=== PATIENT | male | born 1990 | race American Indian/Alaskan Native ===

== ENCOUNTER 2018-11-07 13:14 | Emergency (ER) | payer OTHER ==
[~2018-11-07] VITALS: Ht 180.3 cm; Wt 95.2 kg
[2018-11-07] MEDS ORDERED: DICYCLOMINE HCL20 MG PO (16:41)
[2018-11-07] MEDS ORDERED: ONDANSETRON ODT8 MG PO (16:41)
--- OUTSIDE RECORDS SUMMARY | 2018-11-07 16:54 | XMS ---
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 Care History Medical/Surgical 11/07/2018 [facility] \T\middot;\T\nbsp; PATIENT IS A [employer] MEMBER. \T\middot;\T\nbsp; PLEASE REFER PATIENT TO [facility] FOR NON EMERGENT MEDICAL NEEDS. \T\middot;\ T\nbsp; [facility] CAN SEE PATIENTS SAME DAY FOR APTS IF PATIENT CALLS FIRST THING IN THE MORNING. E.D. VISIT COUNT (12 MO.) [address] [place] [address] TOTAL 1 NOTE: Visits indicate total known visits. ED/UCC VISIT TRACKING (12 MO.) 11/07/2018 13:[address] [facility] [place] TYPE: Emergency COMPLAINT: - FLANK, ABD PAIN INPATIENT VISIT TRACKING (12 MO.) No inpatient visits to display in this time frame [email or web address]
== END 2018-11-07 16:50 | disposition home or self-care (01) ==
LOC: ED 13:14
DX: K80.50 Calculus of bile duct without cholangitis or cholecystitis without obstruction (principal); I10 Essential (primary) hypertension; F41.9 Anxiety disorder, unspecified; F17.200 Nicotine dependence, unspecified, uncomplicated
CPT/HCPCS: 71046; 76705; 80053; 83690; 85025; 96374; 99284-25; 99406; J1885

== ENCOUNTER 2018-11-09 23:31 | Observation (INO) | payer OTHER ==
[~2018-11-09] VITALS: Ht 180.3 cm; Wt 88.7 kg
--- NOTE | ~2018-11-09 | DS ---
[facility] [address] [place], [place] [address] [place] ADMISSION DATE: 11/09/2018 DISCHARGE DATE: 11/11/2018 REASON FOR ADMISSION: This 28-year-old man has had recurrent bouts of right upper abdominal pain. He was seen on Monday last week (today is Monday). He was evaluated in the emergency room by Dr. Valdez showing a gallbladder ultrasound showing "gallbladder polyps." The patient had symptoms suggestive of chronic and recurrent subacute cholecystitis, and he was recommended to be admitted to the hospital for cholecystectomy. He declined due to work issues. He returns on November 10, with complaints of persistent unrelenting pain and he was admitted for further evaluation and care. PHYSICAL EXAMINATION: GENERAL: A healthy male with multiple tattoos. CHEST: Clear. HEART: Regular. ABDOMEN: Flat and soft, but tender in the right subcostal area. LABORATORY STUDIES: Showed a white count of 5.4, hematocrit of 44.8. Chem profile, which was normal showing no sign of hyperbilirubinemia. Lipase normal at 12. HOSPITAL COURSE: He was fluid resuscitated, given intravenous antibiotics, parenteral pain medication, and underwent laparoscopic cholecystectomy on Saturday, November 10, 2018. Cholangiogram was performed as well. The gallbladder was acutely and subacutely inflamed. Cholangiogram was normal. The liver was normal. His postoperative course was rather unremarkable. He was not able to be discharged the night of surgery due to persistent epigastric pain, but this improved and resolved by Sunday, November 11, 2018. Postoperative lab study showed normal liver enzymes. He is discharged home in good condition. DISCHARGE MEDICATIONS: 1. Oxycodone/Tylenol 7.5/325 one p.o. q.6 p.r.n. pain, #10. 2. Ibuprofen 600 mg p.o. q.6 p.r.n. pain, #30. 3. Tylenol plain 325-650 p.o. q.4 hours p.r.n. pain. He will discontinue dicyclomine and Zofran that he was prescribed previously. FOLLOWUP PLANS: He will return to see me in approximately a month. He will call for appointment. He PATIENT NAME: MAL ECHOLS DISCHARGE SUMMARY DATE OF : 86 REPORT #: [id number] PHYSICIAN: HERMINIO HA MD PCP: [facility] REPORT IS CONFIDENTIAL AND NOT TO BE RELEASED WITHOUT AUTHORIZATION [address] [address] [place] wishes to return to work soon. His only restriction will be to lift no more than 20 pounds for the next 2 weeks. A note will be made to that effect. DISCHARGE DIAGNOSIS: Chronic recurrent calculous cholecystitis status post laparoscopic cholecystectomy with intraoperative cholangiogram, November 10, 2018. MD CHE Martin/LITZYL /[id number] cc: Johnnie Valdez MD [facility] Copies: JOHNNIE VALDEZ MD ~ PATIENT NAME: BEATRISMAL LIU ALAN DISCHARGE SUMMARY DATE OF : 86 REPORT #: [id number] PHYSICIAN: HERMINIO HA MD PCP: [facility] REPORT IS CONFIDENTIAL AND NOT TO BE RELEASED WITHOUT AUTHORIZATION
[~2018-11-09 23:31] MED LIST: DICYCLOMINE HCL20 MG PO; ONDANSETRON ODT8 MG PO
--- OUTSIDE RECORDS SUMMARY | 2018-11-09 23:34 | XMS ---
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 \T\middot;\T\nbsp; PLEASE REFER PATIENT TO [facility] FOR NON EMERGENT MEDICAL NEEDS. \T\middot;\ T\nbsp; [facility] CAN SEE PATIENTS SAME DAY FOR APTS IF PATIENT CALLS FIRST THING IN THE MORNING. E.D. VISIT COUNT (12 MO.) 2 [facility] TOTAL 2 NOTE: Visits indicate total known visits. ED/UCC VISIT TRACKING (12 MO.) 11/09/2018 23:32 [facility] TYPE: Emergency COMPLAINT: - FLANK PAIN 11/07/2018 13:15 [facility] TYPE: Emergency COMPLAINT: - FLANK, ABD PAIN INPATIENT VISIT TRACKING (12 MO.) No inpatient visits to display in this time frame [email or web address]
--- NOTE | 2018-11-10 01:15 | NUR ---
PT ARRIVED TO THE FLOOR FROM THE ED VIA STRETCHER. PT AWAKE AND RESTING IN BED WITH COOL RAG TO FOREHEAD. VSS, PT ON RA. RAMYA BARLOW IN ROOM WITH SUHAIL MAY TO COMPLETE INITIAL ADMIT. CALL LIGHT IN REACH.
--- NOTE | 2018-11-10 01:48 | NUR ---
ASSESSMENT COMPLETE, PT RESTING IN BED. AWAKE, RESTING WITH COOL RAG TO FACE. VSS, PT REPORTS 1/10 PAIN TO RIGHT UPPER QUADRANT/LATERAL. PT DENIES NAUSEA AT THIS TIME, BOWEL TONES ACTIVE. IV FLUIDS HUNG AND INFUSING PER MD ORDERS, IV SITE WNL. PT DENIES ADDITIONAL NEEDS, CALL LIGHT IN REACH. EMESIS BAD AT BEDSIDE.
--- NOTE | 2018-11-10 04:19 | NUR ---
ASSESSMENT COMPLETE, NO NEW CHANGES OR CONCERNS. PT RESTING IN BED, EYES OPEN. PT REPOSITIONED IN BED. PT INTERMITTENTLY STATES, "IM SCARED" WHEN BOOSTED IN BED AND REPOSITIONED. CORRAL CATHETER IN PLACE, DRAINING YELLOW CLOUDY URINE. NEW BAG OF IV FLUIDS, LR INFUSING AT 100MLS/HR. CALL LIGHT IN REACH, BED ALARM ON FOR SAFETY.
--- NOTE | 2018-11-10 04:29 | NUR ---
PT RESTING IN BED, NO DISTRESS NOTED. PT DENIES NEED TO VOID OR PAIN MEDICATION. RESTING QUIETLY IN BED. NO FURTHER NEEDS, CALL LIGHT IN REACH.
--- NOTE | 2018-11-10 05:15 | NUR ---
ASSESSMENT COMPLETE, VSS. PT A/OX4, ON RA. PT DENIES NEED TO VOID, BUT AMBULATED TO BATHROOM TO ATTEMPT. ATTEMPT WAS UNSUCCESSFUL. REPORTS VOIDING RIGHT BEFORE ARRIVING TO THE ED. WILL MONITOR. STOCK GRADER AWARE. PT REPORTS 1/10 PAIN, DENIES NEED FOR PAIN MEDICATION. NO FURTHER NEEDS OT CONCERNS. CALL LIGHT IN REACH. IV FLUIDS INFUSING PER MD ORDERS, IV SITE WNL.
--- NOTE | 2018-11-10 06:17 | NUR ---
scheduled iv abx infusing, iv site wnl. call light in reach.
--- NOTE | 2018-11-10 07:22 | NUR ---
PT HAS YET TO VOID. DR HA MADE AWARE OF FLUIDS PT RECEIVED IN ED WELL CURRENT ORDER FOR LR AT 125MLS/HR. PT BLADDER SCANNED, RESULT OF 268. TELEPHONE ORDER READ BACK FOR 1 LITER LACTATED RINGERS TO BE INFUSED OVER ONE HOUR.
--- NOTE | 2018-11-10 07:29 | NUR ---
BEDSIDE REPORT RECEIVED PT IS RESTING ON HIS SIDE BREATHING EVEN AND UNLABORED. APPEARS TO BE SLEEPING SOUNDLY.
--- NOTE | 2018-11-10 07:50 | NUR ---
PATIENT SLEEPING. CALL LIGHT WITHIN REACH. NO OTHER NEEDS AT THIS TIME
--- NOTE | 2018-11-10 09:41 | NUR ---
MED REC COMPLETE
--- NOTE | 2018-11-10 09:42 | NUR ---
PATIENT RESTING IN BED. VITAL SIGNS AND I&O DONE. PATIENT DID NOT VOID DURING THIS PERIOD. RN NOTIFIED. CALL LIGHT WITHIN REACH. NO OTHER NEEDS AT THIS TIME
--- NOTE | 2018-11-10 11:00 | NUR ---
PATIENT RESTING IN BED. GIVEN THE PATIENT SURGICAL WIPES TO CLEAN HIS BODY BEFORE SURGERY AND A CLEAN GOWN. PATIENT EXPLAINED HOW TO USE THEM. CALL LIGHT WITHIN REACH. NO OTHER NEEDS AT THIS TIME
--- NOTE | 2018-11-10 11:48 | NUR ---
PT HAS LAID IN BED DOZING OFF AND ON ALL OF THIS SHIFT. AWAKENS TO VOICE, UP TO TOILET TO VOID RETURNS TO BED. DR HA IN TO SEE PT SURGERY DISCUSSED. PT DENIES QUESTIONS, STATES HE JUST WANTS THIS OVER WITH. PT DENIES PAIN AT THIS TIME AGREES TO NOTIFY STAFF OF ANY INCREASED PAIN
--- NOTE | 2018-11-10 12:31 | NUR ---
SURGICAL PROCEEDURE DISCUSSED WITH PT PREP BEGINS, HE CONTINUES TO DENY ANY QUESTIONS. RESTING IN BED WATCHING TV. DENIES PAIN OR OTHER NEEDS, JSUT WAITING ON SURGERY
--- NOTE | 2018-11-10 13:24 | NUR ---
pt to o.r. via stretcher.
--- NOTE | 2018-11-10 13:46 | NUR ---
PATIENT IN SURGERY. I&O DONE.
--- NOTE | 2018-11-10 15:08 | NUR ---
11/10/18 [address] 1504- PT ARRIVES TO PACU FROM OR ON 7 L VIA MASK. SATS 100%. VSS. PT REACTIVE TO VERBAL STIMULUS. PT HAD GENERAL ANSTHESIA WITH PRECEDEX. LAP SANDER PROCEDURE COMPLETED WITH IOC. LAURIE FERRARA AT BEDSIDE.
[2018-11-10] MEDS ORDERED: PERCOCET 7.5-31 EACH PO (15:29)
[2018-11-10] MEDS ORDERED: TYLENOL325 MG PO (15:30)
[2018-11-10] MEDS ORDERED: MOTRIN IB200 MG PO (15:30)
--- NOTE | 2018-11-10 16:19 | NUR ---
PT TO MEDSURG VIA GURNEY SELF TRANSFERS TO BED. PT HAS EYES SQUEEZED SHUT IN GRIMACE AGREES HE NEEDS SOME PAIN MEDS. MORPHINE ADMINISTERED PT RESTING RELAXED EYES CLOSED. TOLERATES SIPS OF H20 DENIES NAUSEA OR OTHER NEEDS. PT IN TO CHECK ON HIM BREIFLY HE RETURNS TO RELAXED STATE SHE LEAVES.
--- NOTE | 2018-11-10 17:31 | NUR ---
PATIENT SLEEPING. I&O DONE. CALL LIGHT WITHIN REACH. NO OTHER NEEDS AT THIS TIME
--- NOTE | 2018-11-10 18:32 | NUR ---
PATIENT RESTING IN BED. RN IN ROOM. VITAL SIGNS DONE. WARM BLANKET PROVIDED. CALL LIGHT WITHIN REACH. NO OTHER NEEDS AT THIS TIME
--- NOTE | 2018-11-10 18:37 | NUR ---
PT TOLERATES FRUIT REQUESTS A BROKERAGE MANAGER SALAD PROVIDED. CONTINUES TO BE PAINFUL RATING PAIN 6/10 STATES IV MEDS ARE TOO STRONG. IBUPROFEN GIEVEN EARLIER. PERCOCET 1 TAB ADMINISTERED. PT IS ALERT AND AWAKE EATING EVENING MEAL AT THIS TIME. NO NAUSEA OR OTHER C/O
--- NOTE | 2018-11-10 19:25 | NUR ---
SHIFT REPORT RECEIVED FROM DAYSHIFT CAIN MCKEON AT BEDSIDE. PT DROWSY AND RESTING IN BED, BUT AWAKENS EASILY FOR ASSESSMENT. LAP SITES X4 NOTED WITH STERI STRIPS. SCANT OOZING NOTED TO UMBILLICUS SITE. OCCASSIONAL GRIMACING NOTED, BUT PT DENIES NEEDS. PT ALSO DENIES NEED TO VOID AT THIS TIME. CALL LIGHT IN REACH.
--- NOTE | 2018-11-10 21:45 | NUR ---
ASSESSMENT COMPLETE, VSS. PT DROWSY, BUT AWAKENS FOR ASSESSMENT. PT ON RA, O2 SAT WNL. LAP SITES X4 NOTED, LAP SITES DRY, SCANT OLD DRY SEROSANGUINEOUS DRAINAGE NOTED TO LAP SITES, STERI STRIPS IN PLACE. IV FLUIDS INFUSING, IV SITE WNL. PT REPORTS 7/10 PAIN, APPEARS RESTLESS IN BED, GRIMACING NOTED. 2MG IV MORPHINE ADMINISTERED. BOWEL TONES ACTIVE, PT REPORTS NAUSEA EARLIER, SINCE RESOLVED. SCHEDULED MEDICATIONS GIVEN (SEE EMAR). NO FURTHER NEEDS, CALL LIGHT IN REACH. SCD'S IN PLACE.
--- NOTE | 2018-11-10 22:30 | NUR ---
PT RESTING IN BED, APPEARS COMFORTABLE FOLLOWING RECENT IV MORPHINE. RR WNL, EYES CLOSED. NO GRIMACING OR RESTLESSNESS NOTED. CALL LIGHT IN REACH.
--- NOTE | 2018-11-10 23:00 | NUR ---
PT UP SBA TO VOID, PT TOLERATED AMBULATION WELL. DENIES DIZZINESS. DIAMOND WHEEL EDGER DANDY IN ROOM TO ASSIST PT BACK TO BED.
--- NOTE | 2018-11-11 01:18 | NUR ---
PT RESTING IN BED, EYES CLOSED. RR WNL, NO DISTRESS NOTED. IV FLUIDS INFUSING, IV SITE WNL. CALL LIGHT IN REACH.
--- NOTE | 2018-11-11 02:48 | NUR ---
ASSESSMENT COMPELTE, NO NEW CHANGES REGARDING LAP SITES. PT REPORTS EPIGASTRIC PAIN IS IMPROVED, RATES PAIN 2-3/10. IV FLUIDS INFUSING, IV SITE WNL. PT REFUSES SCD'S AT THIS TIME. CALL LIGHT IN REACH.
--- NOTE | 2018-11-11 06:10 | HP ---
[facility] [address] [place], [place] [address] Signed ADMISSION DATE: 11/09/2018 REASON FOR ADMISSION: Acute cholecystitis. HISTORY OF PRESENT ILLNESS: This 28-year-old [place] man has had recurrent bouts of right subcostal pain particularly following meals, which lasts probably 4 to 6 hours most of the time. Radiation to the right subscapular area is noted as well. The patient was recently seen by Dr. Valdez on Monday, where for same complaints, an evaluation included a gallbladder ultrasound, which showed "gallbladder polyps." Although, these may represent polyps, more commonly, such findings are actually adherent gallstones that are noncalcified. I was called by Dr. Valdez on Monday (today is Monday) and I recommended he be admitted to the hospital, anticipating prompt cholecystectomy for symptomatic gallstones or biliary colic with polyps, whichever the case may be. The patient declined at that time as he wished to return to work at [employer]. He refused admission as had been recommended. He presented to the emergency room just after midnight today and evaluated by Dr. Nilda Yen noting recurrent pain in the right subcostal area with radiation into the back. This has been associated with nausea, but no vomiting. He has had occasional diarrhea without bleeding. He had no other complaints of pain. He was admitted for further evaluation and care at this time. His lab studies have shown a normal CBC and liver enzymes and chem profile overall. Lipase was normal as well. At present, the patient still has lingering right subcostal pain and some right subscapular pain, but much of it has resolved with IV fluids and bowel rest. PAST MEDICAL AND SURGICAL HISTORY: Unremarkable as regard to surgical intervention in the past. MEDICATIONS: He is currently on dicyclomine 20 mg t.i.d. for abdominal pain as well as Zofran ODT. SOCIAL HISTORY: He is an everyday smoker. Uses alcohol twice monthly and smokes marijuana. He admits Electronically Signed By: HERMINIO HA MD 11/11/18 0610 PATIENT NAME: MAL ECHOLS HISTORY AND PHYSICAL DATE OF : [birth year] REPORT #: [id number] PHYSICIAN: HERMINIO HA MD PCP: [facility] REPORT IS CONFIDENTIAL AND NOT TO BE RELEASED WITHOUT AUTHORIZATION [facility] [address] [place], [place] [address] Signed to prior methamphetamine use, but none currently. REVIEW OF SYSTEMS: He denies any shortness of breath or chest pain. He has had no blood per rectum or hematemesis, not currently having a diarrhea problem. Denies dysuria. PHYSICAL EXAMINATION: GENERAL: A well-developed, well-nourished [place] man, who does not look obese. He has multiple tattoos including his right face and elsewhere. VITAL SIGNS: Temperature is 97.7, pulse 61, blood pressure 113/55, and pulse oximetry is 100% on room air. HEENT: Mucous membranes reasonably moist. Trachea is midline. He has no hoarseness. CHEST: Clear. HEART: Regular without murmur. ABDOMEN: Flat and nondistended. There is mild tenderness in the right subcostal area. There is no palpable mass. EXTREMITIES: Show no clubbing, cyanosis, or edema. LABORATORY DATA: Lab studies at admission showed a white count of 5.4, hematocrit 44.8, and platelets 221,000. Chem profile is normal. Creatinine 0.83. Total bilirubin is 0.3, alkaline phosphatase 52, and lipase 12. I reviewed the images of the ultrasound performed 2 days ago, which shows probably adherent gallstones rather than gallbladder polyps. Gallbladder wall is somewhat thickened as well. Right kidney appears normal. ASSESSMENT: The patient has biliary symptoms and ongoing chronic cholecystitis probably with possible gallstones, but also possibly with cholesterolosis or polyps as based on the ultrasound. He does not have symptoms suggestive of peptic disease. He has been fluid resuscitated and began on antibiotics and IV Pepcid. I discussed with him the pathophysiology of biliary disease and recommendation of treatment to include cholecystectomy preferred by laparoscopic approach. The risks of bleeding, infection, bile duct injury, need for open procedure, and other unforeseen complications was reviewed in detail. He understands and wished to proceed. PLAN: We will set up for cholecystectomy today, Monday. He might be able to be discharged home promptly thereafter depending on findings. Electronically Signed By: HERMINIO HA MD 11/11/18 0610 PATIENT NAME: MAL ECHOLS HISTORY AND PHYSICAL DATE OF : [birth year] REPORT #: [id number] PHYSICIAN: HERMINIO HA MD PCP: [facility] REPORT IS CONFIDENTIAL AND NOT TO BE RELEASED WITHOUT AUTHORIZATION [facility] [address], [place] [address] Signed MD CHE Martin/MODL /[id number] cc: [facility] MD Nilda Carver MD Copies: [facility] DAWNA VALDEZ MD, KELLY DEAN MD ~ Electronically Signed By: HERMINIO HA MD 11/11/18 0610 PATIENT NAME: MAL ECHOLS HISTORY AND PHYSICAL DATE OF : [birth year] REPORT #: [id number] PHYSICIAN: HERMINIO HA MD PCP: [facility] REPORT IS CONFIDENTIAL AND NOT TO BE RELEASED WITHOUT AUTHORIZATION
--- NOTE | 2018-11-11 06:10 | OR ---
[facility] [address] [place] [place], [place] [address] Signed DATE OF OPERATION: SURGEON: Herminio Ha MD PREOPERATIVE DIAGNOSIS: Acute acalculous cholecystitis (gallbladder polyps). POSTOPERATIVE DIAGNOSIS: Acute calculous cholecystitis (adherent gallstones to gallbladder mucosa). PROCEDURES: 1. Laparoscopic cholecystectomy with intraoperative cholangiogram. 2. Surgeon-directed fluoroscopy. ANESTHESIA: General endotracheal; Lita Quan CRNA, and local 20 mL of 0.25% Marcaine with epinephrine. INDICATIONS: This 28-year-old [place] man presented to the emergency room on Monday (today is Monday) with complaints of several weeks of right upper abdominal pain. Gallbladder ultrasound was performed under the direction of Dr. Mcfadden interpreted by Dr. Hillman showing a gallbladder with "polyps." I had offered admission on the high probability this represented calculous cholecystitis, but the patient declined at that time. He presented again in the political researcher hours today with persistent pain and wished to proceed with a plan for treatment to include cholecystectomy. Evaluation shows him to have mild tenderness in the right upper abdomen, but no sign of generalized peritonitis. He was admitted to undergo laparoscopic cholecystectomy preferably, though open cholecystectomy may be required. He understands the risks of bleeding, infection, bile duct injury, need for open procedure, and other unforeseen complications and wished to proceed. FINDINGS: The gallbladder was subacutely inflamed. Once opened, the gallbladder was noted to have adherent cholesterol type gallstones rather than gallbladder polyps. Cholangiogram was normal. The liver had fatty infiltration, but was otherwise normal. DESCRIPTION OF PROCEDURE: The patient was brought to the operating room, given a general endotracheal anesthetic. Preoperative antibiotic Ancef was given. Sequential compression device stockings were used and heparin subcutaneously administered. After satisfactory general endotracheal Electronically Signed By: HERMINIO HA MD 11/11/18 0610 PATIENT NAME: MAL ECHOLS OPERATIVE REPORT DATE OF : [birth year] REPORT #: [id number] PHYSICIAN: HERMINIO HA MD PCP: [facility] REPORT IS CONFIDENTIAL AND NOT TO BE RELEASED WITHOUT AUTHORIZATION [facility] [address] [place] [place], [place] [address] Signed anesthesia, the abdomen was prepared with a chlorhexidine solution and draped sterilely. An infraumbilical incision was made and using an open Mattie cannula technique, pneumoperitoneum was achieved to a level of 14 mmHg of carbon dioxide gas. Intraabdominal inspection showed the gallbladder to be pink in appearance. A blunted liver edge was noted. Gallbladder was elevated cephalad and retracted laterally using blunt electrocautery dissection. The triangle of Calot was dissected free identifying two cystic arterial branches going directly to the gallbladder. These were doubly clipped and divided. The cystic duct was then dissected free behind, which was relatively small. The clips were applied across gallbladder cystic duct junction and transverse choledochotomy made in the cystic duct. Using the Gallegos type cholangiocatheter, intraoperative cholangiography was undertaken showing free flow of contrast in biliary tree with prompt emptying into the duodenum. There was no sign of filling defect or biliary anomaly. Three clips were applied to the cystic duct site and cystic duct transected. The gallbladder dissected free in a retrograde fashion using electrocautery. The gallbladder was extracted through the infraumbilical port site, opened on the back table, and found to have adherent cholesterol stones to the mucosa. No sign of polyps or other abnormality. Irrigation was undertaken in subhepatic space. There was no sign of bile leak, bleeding, or other problems. Excess irrigation fluid was suctioned free and the trocars were removed under direct visualization. An infraumbilical fascial incision was reapproximated with interrupted 0 Vicryl suture. All wounds were copiously irrigated with saline solution. Skin closed with interrupted 3-0 Vicryl. Steri-Strips were applied. The patient was ultimately extubated and transferred to recovery in good condition having suffered no complications. Sponge, needle, and instrument counts reported as correct x3. MD CHE Martin/LITZYL /[id number] cc: [facility] Johnnie Mcfadden MD Electronically Signed By: HERMINIO HA MD 11/11/18 0610 PATIENT NAME: MAL ECHOLS OPERATIVE REPORT DATE OF : [birth year] REPORT #: [id number] PHYSICIAN: HERMINIO HA MD PCP: [facility] REPORT IS CONFIDENTIAL AND NOT TO BE RELEASED WITHOUT AUTHORIZATION [facility] [address] [place] [id number] Signed Copies: [facility] JOHNNIE MCFADDEN MD ~ Electronically Signed By: HERMINIO HA MD 11/11/18 0610 PATIENT NAME: MAL ECHOLS OPERATIVE REPORT DATE OF : [birth year] REPORT #: [id number] PHYSICIAN: HERMINIO HA MD PCP: [facility] REPORT IS CONFIDENTIAL AND NOT TO BE RELEASED WITHOUT AUTHORIZATION
--- NOTE | 2018-11-11 07:43 | NUR ---
VERBAL ORDER READ BACK TO SALINE LOCK PT WHEN TOLERATING PO INTAKE FROM DR HA . IV FLUIDS DISCONTINUED AT THIS TIME.
--- NOTE | 2018-11-11 07:47 | NUR ---
BEDSIDE REPORT RECEIVED PT ALERT DOES NOT PARTICIPATE. PT STATES HE FEELS MUCH BETTER TODAY. DR HA IN TO SEE PT LABS DRAWN BREAKFAST PRDERED
--- NOTE | 2018-11-13 13:19 | PATH ---
[facility] [address], [place] [address] Signed SPECIMEN(S): A GALLBLADDER AND GALLSTONES SPECIMEN SOURCE: A. GALLBLADDER AND GALLSTONES CLINICAL HISTORY: Acute cholecystitis. FINAL PATHOLOGIC DIAGNOSIS: Gallbladder, cholecystectomy: - Mild chronic cholecystitis. - Cholesterolosis. LJA:cml:C2NR MICROSCOPIC EXAMINATION: Histologic sections of all submitted blocks are examined by light microscopy. These findings, together with the gross examination, support the pathologic diagnosis. GROSS DESCRIPTION: The specimen, labeled "SS, gallbladder," is received in formalin and consists of Specimen: Previously opened gallbladder. Dimensions: 6.0 cm in length and 5.1 cm in circumference. Serosa: Violaceous and smooth. Cystic Duct: Unobstructed. Calculi: No calculi identified within the gallbladder or within the container. Mucosa: Green and velvety with yellow flecking. Wall thickness: 0.7 cm. Lymph node: No pericystic lymph nodes are grossly identified. Additional: None. Cut Off Saw Grader sections are submitted in cassette (A1). JS (under the direct supervision of a pathologist) The Gross Description was prepared using a voice recognition system. The report was reviewed for accuracy; however, sound-alike word errors, addition and/or deletions may occur. If there is any question about this report, please contact Client Services. PERFORMING LABORATORY: The technical component was performed by [employer], [address] [place] [id number] (Product Picker: Angelica Doe MD; CLIA# [id number]). PATIENT NAME: MAL ECHOLS PATHOLOGY DATE OF : 86 REPORT #: [id number] PHYSICIAN: DELIA PATHOLOGY PCP: [facility] REPORT IS CONFIDENTIAL AND NOT TO BE RELEASED WITHOUT AUTHORIZATION [facility] [address], [place] [address] Signed Professional interpretation was performed by [facility], [address] [place] [address] [address], [place] [address] (Product Picker: Roberto Mccloud MD; CLIA# [id number]). Diagnostician: Roberto Mccloud MD Pathologist Electronically Signed 11/13/2018 Copies: ~ PATIENT NAME: MAL ECHOLS PATHOLOGY DATE OF : 86 REPORT #: [id number] PHYSICIAN: DELIA PATHOLOGY PCP: [facility] REPORT IS CONFIDENTIAL AND NOT TO BE RELEASED WITHOUT AUTHORIZATION
== END 2018-11-11 10:30 | disposition home or self-care (01) ==
LOC: ED 23:31 → MS 23:33
PROVIDERS: ADMIT Surgery
PROC: BF101ZZ Fluoroscopy of Bile Ducts using Low Osmolar Contrast (ICD-10-PCS; 2018-11-10)
PROC: 0FT44ZZ Resection of Gallbladder, Percutaneous Endoscopic Approach (ICD-10-PCS; principal; 2018-11-10 13:30)
DX: K80.12 Calculus of gallbladder with acute and chronic cholecystitis without obstruction (principal); I10 Essential (primary) hypertension; F17.210 Nicotine dependence, cigarettes, uncomplicated; Z79.899 Other long term (current) drug therapy
CPT/HCPCS: 00790; 36415; 74300; 80053; 82247; 82465; 83615; 83690; 84100; 84478; 84550; 85025; 96361; 96372; 96374; 96375; 96376; 99284-25; G0378; J0131; J0690; J1100; J1170; J1644; J1885; J2270; J2405; J2704; J3010; J7030; J7120; Q9967